=== PATIENT | male | born 1955 | race Caucasian/White ===

== ENCOUNTER 2019-11-26 16:23 | Emergency (ER) | payer OTHER ==
[~2019-11-26] VITALS: Ht 180.3 cm; Wt 83.0 kg
[2019-11-26 16:30] VITALS: Ht 180.3 cm; Wt 83.0 kg
[2019-11-26 18:51] VITALS: BP 133/78
== END 2019-11-26 18:51 | disposition home or self-care (01) ==
LOC: ED 16:23
DX: M54.5 Low back pain (principal); M79.605 Pain in left leg; J44.9 Chronic obstructive pulmonary disease, unspecified

== ENCOUNTER 2020-05-30 10:30 | Emergency (ER) | payer OTHER, MEDICAID ==
[~2020-05-30] VITALS: Ht 182.9 cm; Wt 79.4 kg
[2020-05-30 10:31] VITALS: Ht 182.9 cm; Wt 79.4 kg
[2020-05-30 13:11] VITALS: BP 125/69
== END 2020-05-30 13:08 | disposition home or self-care (01) ==
LOC: ED 10:30
DX: U07.1 COVID-19 (principal); J12.89 Other viral pneumonia; J44.9 Chronic obstructive pulmonary disease, unspecified
CPT/HCPCS: 87804; J1885

== ENCOUNTER 2020-06-01 12:19 | Emergency (ER) | payer MEDICAID, OTHER ==
[~2020-06-01] VITALS: Ht 182.9 cm; Wt 79.4 kg
[2020-06-01 12:20] VITALS: Ht 182.9 cm; Wt 79.4 kg
[2020-06-01 14:29] VITALS: BP 127/79
== END 2020-06-01 14:29 | disposition home or self-care (01) ==
LOC: ED 12:19
DX: U07.1 COVID-19 (principal); J45.909 Unspecified asthma, uncomplicated; J44.9 Chronic obstructive pulmonary disease, unspecified

== ENCOUNTER 2020-06-03 09:26 | Emergency (ER) | payer MEDICAID, OTHER, SELFPAY ==
[~2020-06-03] VITALS: Ht 182.9 cm; Wt 79.4 kg
[2020-06-03 11:39] LABS: BASOPHIL % 0.2 % (0-2); PLATELET COUNT 302 x10^3mcL (130-400); RED CELL DISTRIBUTION WIDTH 13.6 % (11.5-14.5)
[2020-06-03 11:50] LABS: CALCIUM 8.8 mg/dL (8.5-10.1); CARBON DIOXIDE 25.8 mmol/L (21-32); CHLORIDE SERUM 104 mmol/L (98-107); CREATININE SERUM 1.2 mg/dL (0.7-1.3); GFR1 > 60 mL/min; GLUCOSE SERUM 112 mg/dL (74-106); POTASSIUM SERUM 4.3 mmol/L (3.5-5.1); SODIUM SERUM 138 mmol/L (136-145)
[2020-06-03 11:53] LABS: ALBUMIN 3.7 g/dL (3.4-5.0); ALKALINE PHOSPHATASE 173 U/L (46-116); ALT/SGPT 158 U/L (16-63); AST/SGOT 131 U/L (15-37); BILIRUBIN TOTAL 1.77 mg/dL (0.20-1.00); TOTAL PROTEIN, SERUM 7.5 g/dL (6.4-8.2)
[2020-06-03 12:02] VITALS: BP 142/73
== END 2020-06-03 13:15 | disposition home or self-care (01) ==
LOC: ED 09:26
PROVIDERS: Emergency Medicine
DX: U07.1 COVID-19 (principal); J12.89 Other viral pneumonia; J44.9 Chronic obstructive pulmonary disease, unspecified
CPT/HCPCS: J8540